=== PATIENT | female | born 1940 | race Caucasian/White ===

== ENCOUNTER 2017-02-08 21:40 | Emergency (ER) | payer MEDICARE, OTHER ==
[2017-02-08 21:51] VITALS: BP 121/73
[2017-02-08] MEDS ORDERED: Meclizine 25 MG Tab PO ONE (21:58)
[2017-02-08] MEDS ORDERED: Promethazine 25 MG/ML SDV IM ONE (21:59)
[2017-02-08] MEDS ORDERED: Ondansetron 4 MG/2 ML SDV IVPUSH ONE (21:59)
[2017-02-08] MEDS ORDERED: Sodium Chloride 0.9% 10 ML Syringe FLUSH PRN (22:00)
[2017-02-08] MEDS ORDERED: Sodium Chloride 0.9% 1,000 ML IV ONE (22:00)
--- NOTE | 2017-02-08 22:24 | EDM.PDOC ---
ED HPI GENERAL MEDICAL PROBLEM - General Chief Complaint: ENT Problem Stated Complaint: Dizziness, nausea, spinning feeling Time Seen by Provider: 02/08/17 21:58 Source of Information: Reports: Patient, RN, RN Notes Reviewed History Limitations: Reports: No Limitations - History of Present Illness INITIAL COMMENTS - FREE TEXT/NARRATIVE: Patient presents to the ED at [facility] complaining of dizziness and vertigo like symptoms. Patient states her symptoms started around 2 pm this afternoon. No known triggers. 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 Patient has a history of vertigo in the remote past. Patient states she took a couple baby ASA and took a nap. After waking up, her symptoms persisted. She feels nauseated and like the room is spinning. Onset: Today Onset Date: 02/08/17 Onset Time: 14:00 - Related Data Allergies Allergy/AdvReac Type Severity Reaction Status Date / Time azithromycin [From Zithromax] Allergy Intermediate Rash Verified 02/08/17 21:56 Penicillins Allergy Intermediate Rash Verified 02/08/17 21:56 cefdinir Allergy Rash Verified 02/08/17 21:56 levofloxacin [From Levaquin] Allergy Hives Verified 02/08/17 21:56 atorvastatin calcium AdvReac Muscle Verified 02/08/17 21:56 [From Lipitor] Aches Home Meds: Home Meds Albuterol [Proair HFA] 2 puff INH QID 07/11/15 [History] Albuterol/Ipratropium [Combivent Respimat] 2 puff INH QID 07/11/15 [History] Albuterol/Ipratropium [DuoNeb 3.0-0.5 MG/3 ML] 3 ml NEB QID 07/11/15 [History] Budesonide/Formoterol Fumarate [Symbicort 80-4.5 Mcg Inhaler] 2 puff INH BID [History] Metoprolol Succinate [Toprol XL] 25 mg PO DAILY 07/11/15 [History] Rosuvastatin Calcium [Crestor] 40 mg PO DAILY 07/11/15 [History] Sertraline [Zoloft] 100 mg PO DAILY 07/11/15 [History] buPROPion HCl [Wellbutrin Xl] 300 mg PO DAILY 07/11/15 [History] Aspirin [Halfprin] 81 mg PO DAILY 10/07/15 [History] Clobetasol Propionate/Emoll [Temovate Emollient 0.05%] 1 applic TOP DAILY PRN [History] Codeine/guaiFENesin [Robitussin AC] 5 ml PO TID PRN 10/07/15 [History] Docusate Calcium 1 tab PO DAILY 10/07/15 [History] Nystatin 1 applic TOP BID PRN 10/07/15 [History] Meclizine [Antivert] 25 mg PO Q6H PRN 10/14/15 [History] Past Medical History HEENT History: Reports: Cataract Cardiovascular History: Reports: High Cholesterol, Hypertension Respiratory History: Reports: Asthma, COPD Gastrointestinal History: Reports: Colon Polyp, Hiatal Hernia, Other (See Below) Other Gastrointestinal History: hx h. pylori Psychiatric History: Reports: Depression Endocrine/Metabolic History: Reports: Obesity/BMI 30+, Osteoporosis - Past Surgical History HEENT Surgical History: Reports: Cataract Surgery Social & Family History - Tobacco Use Smoking Status *Q: Current Every Day Smoker Years of Tobacco use: 57 Packs/Tins Daily: 1 - Alcohol Use Days Per Week of Alcohol Use: 7 Number of Drinks Per Day: 4 Total Drinks Per Week: 28 - Recreational Drug Use Recreational Drug Use: No ED ROS GENERAL - Review of Systems Review Of Systems: See Below Constitutional: Denies: Fever, Chills, Weakness HEENT: Reports: Vertigo Respiratory: Denies: Shortness of Breath, Cough Cardiovascular: Denies: Chest Pain, Lightheadedness, Palpitations GI/Abdominal: Reports: Nausea. Denies: Diarrhea, Vomiting Skin: Reports: No Symptoms Neurological: Reports: Dizziness. Denies: Headache, Numbness, Paresthesia, Tingling ED EXAM, DIZZINESS - Physical Exam Exam: See Below Exam Limited By: No Limitations General Appearance: Alert, No Apparent Distress Eye Exam: Bilateral Eye: EOMI, Normal Inspection, PERRL Nystagmus: No: constant Ears: Normal External Exam, Normal Canal, Normal TMs Head Exam: Atraumatic, Normocephalic Vertigo: reproducible, short duration Neck: Supple Respiratory/Chest: No Respiratory Distress, Lungs Clear, Normal Breath Sounds Cardiovascular: Regular Rate, Rhythm GI/Abdominal: Normal Bowel Sounds, Soft, Non-Tender Neurological: Alert, Oriented x 3 Skin Exam: Warm, Dry, Intact, Normal Color, No Rash Course - Vital Signs Last Recorded V/S: Last Vital Signs Temp 36.6 C 02/08/17 21:50 Pulse 72 02/08/17 21:50 Resp 16 02/08/17 21:50 BP 121/73 02/08/17 21:50 Pulse Ox 94 L 02/08/17 21:50 - Orders/Labs/Meds Orders: Active Orders 24 hr Category Date Time Status Sodium Chloride 0.9% [Normal Saline] 1,000 ml Med 02/08/17 22:00 Active IV ONETIME Sodium Chloride 0.9% [Saline Flush] Med 02/08/17 22:00 Active 10 ml FLUSH ASDIRECTED PRN Peripheral IV Insertion Adult [OM.PC] Routine Oth 02/08/17 22:00 Ordered Medication Orders Sodium Chloride (Normal Saline) 1,000 mls @ 999 mls/hr IV ONETIME ONE Stop: 02/08/17 23:00 Last Admin: 02/08/17 22:18 Dose: 999 mls/hr Sodium Chloride (Saline Flush) 10 ml FLUSH ASDIRECTED PRN PRN Reason: Keep Vein Open Meds: Medications Generic Name Dose Route Start Last Admin Trade Name Freq PRN Reason Stop Dose Admin Sodium Chloride 1,000 mls @ 999 mls/hr 02/08/17 22:00 02/08/17 22:18 Normal Saline IV 02/08/17 23:00 999 mls/hr ONETIME ONE Administration Sodium Chloride 10 ml 02/08/17 22:00 Saline Flush FLUSH ASDIRECTED PRN Keep Vein Open Discontinued Medications Generic Name Dose Route Start Last Admin Trade Name Freq PRN Reason Stop Dose Admin Meclizine HCl 25 mg 02/08/17 21:58 02/08/17 22:25 Antivert PO 02/08/17 21:59 25 mg ONETIME ONE Administration Ondansetron HCl 4 mg 02/08/17 21:59 02/08/17 22:19 Zofran IVPUSH 02/08/17 22:00 4 mg ONETIME ONE Administration Promethazine HCl 25 mg 02/08/17 21:59 02/08/17 22:21 Phenergan IM 02/08/17 22:00 25 mg ONETIME ONE Administration Departure - Departure Time of Disposition: 22:52 Disposition: Home, Self-Care 01 Condition: Good Clinical Impression: Dizziness - Discharge Information Instructions: Vertigo, Dizziness Referrals: Xochitl Fernandez DO [Primary Care Provider] - Forms: ED Department Discharge Additional Instructions: 1. Stay well hydrated and rest 2. If symptoms persist, see your Primary for further examination and testing 3. Take over the counter Meclizine when needed - Problem List Review Problem List Initiated/Reviewed/Updated: Yes - My Orders Last 24 Hours: My Active Orders 02/08/17 22:00 Sodium Chloride 0.9% [Normal Saline] 1,000 ml IV ONETIME Sodium Chloride 0.9% [Saline Flush] 10 ml FLUSH ASDIRECTED PRN Peripheral IV Insertion Adult [OM.PC] Routine - Assessment/Plan Last 24 Hours: My Active Orders 02/08/17 22:00 Sodium Chloride 0.9% [Normal Saline] 1,000 ml IV ONETIME Sodium Chloride 0.9% [Saline Flush] 10 ml FLUSH ASDIRECTED PRN Peripheral IV Insertion Adult [OM.PC] Routine
== END 2017-02-08 23:18 | disposition home or self-care (01) ==
LOC: VM.ED 21:40
DX: R42 Dizziness and giddiness (principal); F17.210 Nicotine dependence, cigarettes, uncomplicated; E78.00 Pure hypercholesterolemia, unspecified; I10 Essential (primary) hypertension; J45.909 Unspecified asthma, uncomplicated; J44.9 Chronic obstructive pulmonary disease, unspecified; E66.9 Obesity, unspecified; F32.9 Major depressive disorder, single episode, unspecified; Z79.82 Long term (current) use of aspirin; Z79.899 Other long term (current) drug therapy; Z88.1 Allergy status to other antibiotic agents; Z88.0 Allergy status to penicillin; Z88.8 Allergy status to other drugs, medicaments and biological substances
CPT/HCPCS: 96361; 96372; 96374; 99283; 99284; A9270; J2405; J2550; J7030

== ENCOUNTER 2017-02-10 22:41 | Emergency (ER) | payer MEDICARE, OTHER ==
[2017-02-10] MEDS ORDERED: Sodium Chloride 0.9% 10 ML Syringe FLUSH PRN (23:01)
[2017-02-10] MEDS ORDERED: Sodium Chloride 0.9% 1,000 ML IV ONE (23:03)
[2017-02-10] MEDS ORDERED: Ondansetron 4 MG/2 ML SDV IVPUSH ONE (23:03)
[2017-02-10] MEDS ORDERED: dimenhyDRINATE 50 MG Tab PO ONE (23:05)
[2017-02-10] MEDS ORDERED: Meclizine 25 MG Tab PO ONE (23:05)
[2017-02-11 00:01] LABS: CHLORIDE,CL 106 mmol/L (98-107); SODIUM,NA 143 mmol/L (136-145)
[2017-02-11] MEDS ORDERED: dimenhyDRINATE 50 MG Tab ONE (00:45)
[2017-02-11 01:02] VITALS: BP 142/82
--- NOTE | 2017-02-16 21:54 | ER ---
Date of Service: 02/10/2017 SUBJECTIVE: Katharine presents to the emergency room with complaints of vertigo. The patient states that she has experienced this intermittently in the past and states that she was in the emergency room on 02/08 with similar symptoms. Her symptoms were treated with meclizine and promethazine, but she continued to experience these symptoms. Again, the patient states that she has experienced this in the past but states that she has not had any neuro imaging to rule out acoustic neuroma or other pathology. She states that she did not experience any chest pain or shortness of breath prior to the onset of the symptoms. PAST MEDICAL HISTORY: 1. Hiatal hernia. 2. Colon polyps. 3. Asthma. 4. COPD. 5. Dyslipidemia. 6. Hypertension. 7. Osteoporosis. 8. Obesity. 9. Depression. MEDICATIONS: 1. Wellbutrin XL. 2. Crestor. 3. Zoloft. 4. Nystatin. 5. Toprol-XL. 6. Antivert. 7. Docusate. 8. Robitussin-AC. 9. Symbicort. 10.Aspirin. 11.DuoNeb. 12.Combivent. 13.ProAir HFA. ALLERGIES: Azithromycin, penicillin, cefdinir, levofloxacin, and atorvastatin. REVIEW OF SYSTEMS: General: Denies any fever or chills. HEENT: Denies any head trauma. No blurred vision. Denies any recent illness. No ear abnormality. Respiratory: No shortness breath. Cardiac: Denies any substernal chest pain. No jaw, arm, neck, or back pain. Denies any palpitations. GI: No melena, hematochezia, or hematemesis. : Denies any dysuria. Musculoskeletal: No myalgias or arthralgias. Neurologic: No fainting, blackouts, lightheadedness. Please see history of present illness. PHYSICAL EXAMINATION: General: This is a 76-year-old female patient, who is in no acute distress. Vital Signs: Blood pressure initially 158/71, heart rate is 97, temperature is 36.3, respiratory rate is 16, O2 saturations 97%. Skin: Warm, pink, and dry. HEENT: Mouth, oral mucosa is moist. Lungs: Clear to auscultation. Heart: Regular rate and rhythm. Abdomen: Soft, nontender. There is no hepatosplenomegaly noted. There is no masses noted. Extremities: Without edema. Neurologic: The patient is alert and oriented, answers all questions appropriately. Her speech is fluent. Her gait is within normal limits. DIAGNOSTIC DATA: A 12-lead EKG was obtained showing a sinus rhythm without any acute ST or T-wave abnormalities. LABORATORY DATA: CBC was obtained, all noted to be within normal limits, as was PT and INR. Chemistry; sodium is 143, potassium is 3.9, chloride is 106, bicarb is 32, BUN is 11, creatinine is 0.8. GFR is greater than 60. Glucose is 119, calcium is 8.0, corrected calcium is 8.72, total bilirubin is 0.7, AST is 15, ALT is 25, alkaline phosphatase is 86, troponin is less than 0.017, total protein is 6.5, albumin is 3.1. CT scan of the patient's brain without contrast was obtained. There was no evidence of any acute pathology. EMERGENCY ROOM COURSE: IV access was established. The patient was given 1000 mL bolus of normal saline and was given meclizine 25 mg p.o. as well as dimenhydrinate 50 mg p.o. She was also given Zofran 4 mg IV. She did report significant improvement in her vertigo. ASSESSMENT: Vertigo. PLAN: The patient will be discharged. I did give her a take-home pack of a dimenhydrinate in case the symptoms redevelop. I did advise that she should follow up with Physical Therapy for vestibular care, but she refused, stating that she wanted to go to her chiropractor instead. All questions were answered. MWK: 02/16/2017 15:44:27 MODL: 02/16/2017 21:48:36 /[id number]
== END 2017-02-11 00:46 | disposition home or self-care (01) ==
LOC: VM.ED 22:41
DX: R42 Dizziness and giddiness (principal); J45.909 Unspecified asthma, uncomplicated; J44.9 Chronic obstructive pulmonary disease, unspecified; I10 Essential (primary) hypertension; E78.5 Hyperlipidemia, unspecified; M81.0 Age-related osteoporosis without current pathological fracture; E66.9 Obesity, unspecified; F32.9 Major depressive disorder, single episode, unspecified; Z88.1 Allergy status to other antibiotic agents; Z88.8 Allergy status to other drugs, medicaments and biological substances
CPT/HCPCS: 36415; 70450; 80053; 84484; 85025; 85610; 93005; 96365; 96375; 99284; A9270; J2405; J7030

== ENCOUNTER 2017-08-27 14:38 | Emergency (ER) | payer MEDICARE, OTHER ==
[2017-08-27 14:58] VITALS: BP 127/69
[2017-08-27] MEDS ORDERED: Scopolamine 1.5 MG Transdermal Patch TOP ONE (15:05)
[2017-08-27] MEDS ORDERED: Meclizine 25 MG Tab PO ONE (15:05)
--- NOTE | 2017-08-27 15:05 | EDM.PDOC ---
ED HPI GENERAL MEDICAL PROBLEM - General Chief Complaint: General Stated Complaint: DIZZY Time Seen by Provider: 08/27/17 14:45 Source of Information: Reports: Patient History Limitations: Reports: No Limitations - History of Present Illness INITIAL COMMENTS - FREE TEXT/NARRATIVE: Patient comes into the ER today coming on after she sustained severe dizziness episode at home while she was getting up from lying position. She's had similar instances in the past the results of emergency room visit. She has a diagnosis of vertigo. She states this incident is exactly the same as one back in May. She had a CT scan labs completed at that time which all came back benign. Patient states she did not fall did not hit her head she's not any more short of breath than she normally is for she does have COPD and constantly has shortness of breath but nothing greater than her baseline. Patient states she becomes more dizzy going from the lying to sitting position or rotating her head from [id number] and [id number]. The dizziness doesn't go away after a few minutes after sitting upright position and focuses on something on the wall. Onset: Today, Sudden Duration: Constant Improves with: Reports: Immobilization Worsens with: Reports: Movement Associated Symptoms: Reports: No Other Symptoms Left Shoulder Pain Score (Numeric/FACES): 6 - Related Data Allergies Allergy/AdvReac Type Severity Reaction Status Date / Time azithromycin [From Zithromax] Allergy Intermediate Rash Verified 08/27/17 14:58 Penicillins Allergy Intermediate Rash Verified 08/27/17 14:58 cefdinir Allergy Rash Verified 08/27/17 14:58 levofloxacin [From Levaquin] Allergy Hives Verified 08/27/17 14:58 atorvastatin calcium AdvReac Muscle Verified 08/27/17 14:58 [From Lipitor] Aches Home Meds: Home Meds Albuterol [Proair HFA] 2 puff INH QID 07/11/15 [History] Albuterol/Ipratropium [Combivent Respimat] 2 puff INH QID 07/11/15 [History] Albuterol/Ipratropium [DuoNeb 3.0-0.5 MG/3 ML] 3 ml NEB QID 07/11/15 [History] Budesonide/Formoterol Fumarate [Symbicort 80-4.5 Mcg Inhaler] 2 puff INH BID [History] Metoprolol Succinate [Toprol XL] 25 mg PO DAILY 07/11/15 [History] Rosuvastatin Calcium [Crestor] 40 mg PO DAILY 07/11/15 [History] Sertraline [Zoloft] 100 mg PO DAILY 07/11/15 [History] buPROPion HCl [Wellbutrin Xl] 300 mg PO DAILY 07/11/15 [History] Aspirin [Halfprin] 81 mg PO DAILY 10/07/15 [History] Clobetasol Propionate/Emoll [Temovate Emollient 0.05%] 1 applic TOP DAILY PRN [History] Codeine/guaiFENesin [Robitussin AC] 5 ml PO TID PRN 10/07/15 [History] Docusate Calcium 1 tab PO DAILY 10/07/15 [History] Nystatin 1 applic TOP BID PRN 10/07/15 [History] Meclizine [Antivert] 25 mg PO Q6H PRN 10/14/15 [History] Dimenhydrinate 50 mg PO Q4HR #3 tablet 02/11/17 [Rx] Past Medical History HEENT History: Reports: Cataract Cardiovascular History: Reports: High Cholesterol, Hypertension Respiratory History: Reports: Asthma, COPD Gastrointestinal History: Reports: Colon Polyp, Hiatal Hernia, Other (See Below) Other Gastrointestinal History: hx h. pylori Psychiatric History: Reports: Depression Endocrine/Metabolic History: Reports: Obesity/BMI 30+, Osteoporosis - Past Surgical History HEENT Surgical History: Reports: Cataract Surgery Social & Family History - Tobacco Use Smoking Status *Q: Current Every Day Smoker Years of Tobacco use: 60 Packs/Tins Daily: 1.5 - Alcohol Use Days Per Week of Alcohol Use: 7 Number of Drinks Per Day: 4 Total Drinks Per Week: 28 - Recreational Drug Use Recreational Drug Use: No ED ROS GENERAL - Review of Systems Review Of Systems: See Below Constitutional: Reports: No Symptoms HEENT: Reports: No Symptoms Respiratory: Reports: No Symptoms Cardiovascular: Reports: No Symptoms Endocrine: Reports: No Symptoms GI/Abdominal: Reports: No Symptoms : Reports: No Symptoms Musculoskeletal: Reports: No Symptoms Skin: Reports: No Symptoms Neurological: Reports: Dizziness (with movement) Psychiatric: Reports: No Symptoms Hematologic/Lymphatic: Reports: No Symptoms Immunologic: Reports: No Symptoms ED EXAM, GENERAL - Physical Exam Exam: See Below Exam Limited By: No Limitations General Appearance: Alert, WD/WN, No Apparent Distress Ears: Normal External Exam, Normal Canal Head: Atraumatic, Normocephalic Neck: Normal Inspection, Supple, Non-Tender, Full Range of Motion Respiratory/Chest: No Respiratory Distress, Lungs Clear, Normal Breath Sounds Cardiovascular: Normal Peripheral Pulses, Regular Rate, Rhythm GI/Abdominal: Normal Bowel Sounds, Soft, Non-Tender, No Organomegaly, No Distention, No Abnormal Bruit, No Mass, Pelvis Stable Neurological: Other (dizziness when rising from the laying position and rotating head. ) Psychiatric: Normal Affect, Normal Mood Skin Exam: Warm, Dry, Intact, Normal Color, No Rash Course - Vital Signs Last Recorded V/S: Last Vital Signs Temp 36.6 C 08/27/17 14:53 Pulse 63 08/27/17 14:53 Resp 18 08/27/17 14:53 BP 127/69 08/27/17 14:53 Pulse Ox 95 08/27/17 14:53 - Orders/Labs/Meds Meds: Medications Discontinued Medications Generic Name Dose Route Start Last Admin Trade Name Raciel PRN Reason Stop Dose Admin Meclizine HCl 25 mg 08/27/17 15:05 08/27/17 15:12 Antivert PO 08/27/17 15:06 25 mg ONETIME ONE Administration Scopolamine 1.5 mg 08/27/17 15:05 Transderm-Scop TOP 08/27/17 15:06 ONETIME ONE - Re-Assessments/Exams Free Text/Narrative Re-Assessment/Exam: 08/27/17 15:21 Did offer to do labs and a CT scan at this point patient is deferring all them she would like to try oral medication regimen to see if the dizziness/vertigo will go away. We'll go ahead and give the patient 30 minutes if this is not reside of any sort we will go ahead and continue all her lab draw. Patient was discouraged from waiting in case her is anywhere abnormal findings however the patient would like to hold off. She is aware of the risks of this. Departure - Departure Time of Disposition: 16:00 Disposition: Home, Self-Care 01 Condition: Good Clinical Impression: Vertigo, Dizziness - Discharge Information Instructions: Vertigo, [id number] Forms: ED Department Discharge Additional Instructions: increase water intake follow up with PCP if symptoms continue and progress follow up with physical therapy to help with vertigo training Return if symptoms continue or progress
== END 2017-08-27 16:12 | disposition home or self-care (01) ==
LOC: VM.ED 14:38
DX: R42 Dizziness and giddiness (principal); E78.00 Pure hypercholesterolemia, unspecified; I10 Essential (primary) hypertension; E66.9 Obesity, unspecified; J45.909 Unspecified asthma, uncomplicated; F17.210 Nicotine dependence, cigarettes, uncomplicated; Z88.2 Allergy status to sulfonamides; Z88.8 Allergy status to other drugs, medicaments and biological substances; Z79.899 Other long term (current) drug therapy; Z79.82 Long term (current) use of aspirin
CPT/HCPCS: 99283; A9270

== ENCOUNTER 2018-01-03 04:37 | Emergency (ER) | payer MEDICARE, OTHER ==
[2018-01-03 04:58] VITALS: BP 130/79
[2018-01-03] MEDS: GI Cocktail Oral Solution 30 ML PO ONE (05:18)
[2018-01-03] MEDS: Cyclobenzaprine 10 MG Tab PO ONE (05:22)
[2018-01-03 06:08] LABS: CHLORIDE,CL 105 mmol/L (98-107); SODIUM,NA 141 mmol/L (136-145)
--- NOTE | 2018-01-03 06:24 | EDM.PDOC ---
ED HPI GENERAL MEDICAL PROBLEM - General Chief Complaint: Chest Pain Stated Complaint: Left lower chest/rib pain Time Seen by Provider: 01/03/18 05:03 Source of Information: Reports: Patient History Limitations: Reports: No Limitations - History of Present Illness INITIAL COMMENTS - FREE TEXT/NARRATIVE: Patient comes in with complaints of left rib/chest pain. She denies shortness of breath. No pain or numbness/tingling to the left arm, neck, or jaw. Pain does worsen with movement and palpation. Denies fever, no blood to urine or stool. Having regular bowel and bladder movements. Denies any history of HI or CVA. She states she was out to eat at the local [employer] and had a couple of beers with her dinner. She had some burping and took some gaviston. This did help. Treatments MANAGER OF PROJECT MANAGEMENT: Reports: Other (see below) Other Treatments MANAGER OF PROJECT MANAGEMENT: Mylanta left lower chest/rib Pain Score (Numeric/FACES): 2 - Related Data Allergies Allergy/AdvReac Type Severity Reaction Status Date / Time azithromycin [From Zithromax] Allergy Intermediate Rash Verified 01/03/18 05:00 Penicillins Allergy Intermediate Rash Verified 01/03/18 05:00 cefdinir Allergy Rash Verified 01/03/18 05:00 levofloxacin [From Levaquin] Allergy Hives Verified 01/03/18 05:00 atorvastatin calcium AdvReac Muscle Verified 01/03/18 05:00 [From Lipitor] Aches Home Meds: Home Meds Albuterol [Proair HFA] 2 puff INH QID 07/11/15 [History] Albuterol/Ipratropium [Combivent Respimat] 2 puff INH QID 07/11/15 [History] Albuterol/Ipratropium [DuoNeb 3.0-0.5 MG/3 ML] 3 ml NEB QID 07/11/15 [History] Budesonide/Formoterol Fumarate [Symbicort 80-4.5 Mcg Inhaler] 2 puff INH BID [History] Metoprolol Succinate [Toprol XL] 25 mg PO DAILY 07/11/15 [History] Rosuvastatin Calcium [Crestor] 40 mg PO DAILY 07/11/15 [History] Sertraline [Zoloft] 100 mg PO DAILY 07/11/15 [History] buPROPion HCl [Wellbutrin Xl] 300 mg PO DAILY 07/11/15 [History] Aspirin [Halfprin] 81 mg PO DAILY 10/07/15 [History] Clobetasol Propionate/Emoll [Temovate Emollient 0.05%] 1 applic TOP DAILY PRN [History] Codeine/guaiFENesin [Robitussin AC] 5 ml PO TID PRN 10/07/15 [History] Docusate Calcium 1 tab PO DAILY 10/07/15 [History] Nystatin 1 applic TOP BID PRN 10/07/15 [History] Meclizine [Antivert] 25 mg PO Q6H PRN 10/14/15 [History] Dimenhydrinate 50 mg PO Q4HR #3 tablet 02/11/17 [Rx] Past Medical History HEENT History: Reports: Cataract Cardiovascular History: Reports: High Cholesterol, Hypertension Respiratory History: Reports: Asthma, COPD Gastrointestinal History: Reports: Colon Polyp, Hiatal Hernia, Other (See Below) Other Gastrointestinal History: hx h. pylori Psychiatric History: Reports: Depression Endocrine/Metabolic History: Reports: Obesity/BMI 30+, Osteoporosis - Past Surgical History HEENT Surgical History: Reports: Cataract Surgery Course - Vital Signs Last Recorded V/S: Last Vital Signs Temp 36.9 C 01/03/18 04:37 Pulse 71 01/03/18 04:37 Resp 16 01/03/18 04:37 BP 130/79 01/03/18 04:37 Pulse Ox 95 01/03/18 04:37 - Orders/Labs/Meds Orders: Active Orders 24 hr Category Date Time Status EKG 12 Lead [EKG Documentation Completion] [RC] ROUTINE Care 01/03/18 05:03 Active Chest 1V Frontal [CR] Stat Exams 01/03/18 05:11 Taken Labs: Laboratory Tests 01/03/18 01/03/18 01/03/18 Range/Units 05:39 05:39 05:39 WBC 7.8 (4.0-10.0) x10^3/uL RBC 4.86 (4.00-5.50) x10^6/uL Hgb 14.9 (12.0-16.0) g/dL Hct 44.6 (33.0-47.0) % MCV 91.8 (78.0-93.0) fL MCH 30.7 (26.0-32.0) pg MCHC 33.4 (32.0-36.0) g/dL RDW Coeff of Carissa 14.7 (10.0-15.0) % Plt Count 236 (130-400) x10^3/uL Neut % (Auto) 63.4 (50.0-80.0) % Lymph % (Auto) 25.0 (25.0-50.0) % Greenlee % (Auto) 8.6 (2.0-11.0) % Eos % (Auto) 2.6 (0.0-4.0) % Baso % (Auto) 0.4 (0.2-1.2) % PT 9.1 L (9.6-11.4) SEC INR 0.9 L (2.0-3.5) Sodium 141 (136-145) mmol/L Potassium 4.4 (3.5-5.1) mmol/L Chloride 105 (98-107) mmol/L Carbon Dioxide 28 (21-32) mmol/L Anion Gap 12.4 (10-20) mmol/L BUN 17 (7-18) mg/dL Creatinine 0.8 (0.55-1.02) mg/dL Est Cr Clr Drug Dosing 54.67 mL/min Estimated GFR (MDRD) > 60 Glucose 108 H (74-106) mg/dL Calcium 8.6 (8.5-10.1) mg/dL Corrected Calcium 9.16 (8.5-10.1) mg/dL Total Bilirubin 0.6 (0.2-1.0) mg/dL AST 17 (15-37) U/L ALT 24 (14-59) U/L Alkaline Phosphatase 86 (46-116) U/L Troponin I < 0.017 (<=0.056) ng/mL Total Protein 6.9 (6.4-8.2) g/dL Albumin 3.3 L (3.4-5.0) g/dL Globulin 3.6 Albumin/Globulin Ratio 0.92 Meds: Medications Discontinued Medications Generic Name Dose Route Start Last Admin Trade Name Freq PRN Reason Stop Dose Admin Al Hydroxide/Mg Hydroxide 30 ml 01/03/18 05:03 05/16/18 05:18 Gi Cocktail PO 01/03/18 05:04 30 ml ONETIME ONE Administration Cyclobenzaprine HCl 10 mg 01/03/18 05:03 01/03/18 05:22 Flexeril PO 01/03/18 05:04 10 mg ONETIME ONE Administration Cyclobenzaprine HCl 1 packet 01/03/18 06:19 01/03/18 06:31 Take Home: Cyclobenzaprine 10 Mg, 4 Tab Pack PO 01/03/18 06:20 1 packet ONETIME ONE Administration Departure - Departure Time of Disposition: 06:25 Disposition: Home, Self-Care 01 Condition: Good Clinical Impression: Costochondral chest pain Instructions: Costochondritis, [id number], Chest Wall Pain, [id number] Referrals: PCP,Unobtain [Primary Care Provider] - Forms: ED Department Discharge Additional Instructions: You labs, ekg, and x-ray are all normal with no signs of a heart attack Your pain is likely due to acid reflux as well as some costochondritis Please take the flexeril as needed for muscle pain Follow up in the clinic as needed for any additional symptom management Please call us with any questions or concerns - Problem List & Annotations (1) Costochondral chest pain SNOMED Code(s): 766055044, [id number] Code(s): R07.1 - CHEST PAIN ON BREATHING Status: Acute Priority: Medium - Problem List Review Problem List Initiated/Reviewed/Updated: Yes - My Orders Last 24 Hours: My Active Orders 01/03/18 05:03 EKG 12 Lead [EKG Documentation Completion] [RC] ROUTINE 01/03/18 05:11 Chest 1V Frontal [CR] Stat - Assessment/Plan Last 24 Hours: My Active Orders 01/03/18 05:03 EKG 12 Lead [EKG Documentation Completion] [RC] ROUTINE 01/03/18 05:11 Chest 1V Frontal [CR] Stat Assessment:: costochondral chest pain Plan: You labs, ekg, and x-ray are all normal with no signs of a heart attack Your pain is likely due to acid reflux as well as some costochondritis Please take the flexeril as needed for muscle pain Follow up in the clinic as needed for any additional symptom management Please call us with any questions or concerns
[2018-01-03] MEDS: Take Home: Cyclobenzaprine 10 MG Tab, 4 Tab Pack PO ONE (06:31)
== END 2018-01-03 06:39 | disposition home or self-care (01) ==
LOC: VM.ED 04:37
DX: M94.0 Chondrocostal junction syndrome [Tietze] (principal); I10 Essential (primary) hypertension; E78.00 Pure hypercholesterolemia, unspecified; J44.9 Chronic obstructive pulmonary disease, unspecified; F32.9 Major depressive disorder, single episode, unspecified; E66.9 Obesity, unspecified; Z79.899 Other long term (current) drug therapy; Z88.0 Allergy status to penicillin; Z88.1 Allergy status to other antibiotic agents; Z88.8 Allergy status to other drugs, medicaments and biological substances
CPT/HCPCS: 36415; 71045; 80053; 84484; 85025; 85610; 93005; 99284; A9270-GY

== ENCOUNTER 2019-10-08 03:00 | Emergency (ER) | payer MEDICARE, OTHER ==
[2019-10-08] MEDS: Aspirin 81 MG Tab.Chew PO ONE (03:30)
--- NOTE | 2019-10-08 03:33 | EDM.PDOC ---
ED HPI GENERAL MEDICAL PROBLEM - General Chief Complaint: Chest Pain Stated Complaint: Chest pain Time Seen by Provider: 10/08/19 03:00 Source of Information: Reports: Patient History Limitations: Reports: No Limitations - History of Present Illness INITIAL COMMENTS - FREE TEXT/NARRATIVE: Patient states approximately 10:00 or so tonight when laying down and rolled over on her left side started having a sharp chest pain under her left breast about a 6 out of 10 nonradiating no shortness of breath no nausea or vomiting. States she has had these types of chest pains before either due to indigestion or hiatal hernia. States she had been eaten spicy trail mix all night thought it might be gas got up and took a few Gaviscon waited a little bit try to lay back down but the pain was still there. She denied any pain intensity states it is worse when she lays on that side or puts pressure up under her left breast. She states she was seen here in the ER with the same type of pain about a year ago. 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 was had had several troponins drawn in the past all are negative mother had a heart attack at 84 father had no heart problems She currently has no chest pain unless she pushes directly on the area under her left breast Onset: Sudden Duration: Hour(s): Location: Reports: Chest Quality: Reports: Stabbing Severity: Moderate (Was about a 5 or 6 out of 10 none now) Worsens with: Reports: Other (Pressure and touch) Associated Symptoms: Reports: No Other Symptoms Treatments JAVASCRIPT ENGINEER: Denies: Acetaminophen, Aspirin Other Treatments JAVASCRIPT ENGINEER: tums left chest, under breast Pain Score (Numeric/FACES): 6 - Related Data Allergies Allergy/AdvReac Type Severity Reaction Status Date / Time azithromycin [From Zithromax] Allergy Intermediate Rash Verified 10/08/19 03:17 Penicillins Allergy Intermediate Rash Verified 10/08/19 03:17 cefdinir Allergy Rash Verified 10/08/19 03:17 levofloxacin [From Levaquin] Allergy Hives Verified 10/08/19 03:17 atorvastatin calcium AdvReac Muscle Verified 10/08/19 03:17 [From Lipitor] Aches Home Meds: Home Meds Albuterol [Proair HFA] 2 puff INH QID 07/11/15 [History] Albuterol/Ipratropium [Combivent Respimat] 2 puff INH QID 07/11/15 [History] Albuterol/Ipratropium [DuoNeb 3.0-0.5 MG/3 ML] 3 ml NEB QID 07/11/15 [History] Budesonide/Formoterol Fumarate [Symbicort 80-4.5 MCG] 2 puff INH BID 07/11/15 [ History] Metoprolol Succinate [Toprol XL] 25 mg PO DAILY 07/11/15 [History] Rosuvastatin Calcium [Crestor] 40 mg PO DAILY 07/11/15 [History] Sertraline [Zoloft] 100 mg PO DAILY 07/11/15 [History] buPROPion HCl [Wellbutrin Xl] 300 mg PO DAILY 07/11/15 [History] Aspirin [Halfprin] 81 mg PO DAILY 10/07/15 [History] Clobetasol Propionate/Emoll [Temovate Emollient 0.05%] 1 applic TOP DAILY PRN [History] Docusate Calcium 1 tab PO DAILY 10/07/15 [History] Nystatin 1 applic TOP BID PRN 10/07/15 [History] Scopolamine 1 mg TRDERM ASDIRECTED 10/08/19 [History] Past Medical History HEENT History: Reports: Cataract Cardiovascular History: Reports: High Cholesterol, Hypertension Respiratory History: Reports: Asthma, COPD Gastrointestinal History: Reports: Colon Polyp, Hiatal Hernia, Other (See Below) Other Gastrointestinal History: hx h. pylori Psychiatric History: Reports: Depression Endocrine/Metabolic History: Reports: Obesity/BMI 30+, Osteoporosis - Past Surgical History HEENT Surgical History: Reports: Cataract Surgery ED ROS GENERAL - Review of Systems Review Of Systems: See Below Constitutional: Reports: No Symptoms. Denies: Fever, Chills, Malaise, Weakness HEENT: Reports: No Symptoms Respiratory: Reports: No Symptoms, Pleuritic Chest Pain. Denies: Shortness of Breath, Wheezing, Cough, Sputum Cardiovascular: Reports: Chest Pain. Denies: Blood Pressure Problem, Claudication, Dyspnea on Exertion, Edema, Lightheadedness, Orthopnea, Palpitations, PND, Syncope Endocrine: Reports: No Symptoms GI/Abdominal: Reports: No Symptoms : Reports: No Symptoms Musculoskeletal: Reports: No Symptoms Skin: Reports: No Symptoms Neurological: Reports: No Symptoms Psychiatric: Reports: No Symptoms Hematologic/Lymphatic: Reports: No Symptoms Immunologic: Reports: No Symptoms ED EXAM, GENERAL - Physical Exam Exam: See Below Exam Limited By: No Limitations General Appearance: Alert, WD/WN, No Apparent Distress Eye Exam: Bilateral Eye: PERRL Throat/Mouth: Normal Inspection, Normal Lips, Normal Teeth, Normal Gums, Normal Oropharynx, Normal Voice, No Airway Compromise Head: Atraumatic, Normocephalic Neck: Normal Inspection, Supple, Non-Tender, Full Range of Motion Respiratory/Chest: No Respiratory Distress, Lungs Clear, Normal Breath Sounds, No Accessory Muscle Use, Other (Patient has pinpoint tenderness to the left anterior chest wall just under the breast where she has superficial candidiasis she states she always has she states the palpation reproduces the same type of pain). No: Chest Non-Tender Cardiovascular: Normal Peripheral Pulses, Regular Rate, Rhythm, No Edema, No Gallop, No JVD, No Murmur, No Rub GI/Abdominal: Normal Bowel Sounds, Soft, Non-Tender, No Organomegaly, No Distention Back Exam: Normal Inspection, Full Range of Motion Extremities: Normal Inspection, Normal Range of Motion, Non-Tender, No Pedal Edema, Normal Capillary Refill Neurological: Alert, Oriented, CN II-XII Intact, Normal Cognition Psychiatric: Normal Affect, Normal Mood Skin Exam: Warm, Dry, Intact, Normal Color, Other (Bilateral superficial candidiasis under the breast). No: No Rash Course - Vital Signs Text/Narrative:: CBC BMP troponin EKG shows normal sinus rhythm no acute findings compared with the 19 Dec 2017 no changes I reviewed the note and almost read identical to the prior presentation today All lab work within normal limits troponin negative Patient was rechecked states she has no chest pain he wants to go home states she will follow-up with her primary care provider Mecca Pillai in the next day or 2 Last Recorded V/S: Last Vital Signs Temp 36.1 C 10/08/19 03:00 Pulse 68 10/08/19 03:00 Resp 18 10/08/19 03:00 BP 148/78 H 10/08/19 03:00 Pulse Ox 95 10/08/19 03:00 - Orders/Labs/Meds Orders: Active Orders 24 hr Category Date Time Status EKG 12 Lead [EKG Documentation Completion] [RC] STAT Care 10/08/19 03:25 Ordered Labs: Laboratory Tests 10/08/19 10/08/19 10/08/19 Range/Units 03:46 03:46 03:49 WBC 8.0 (4.0-10.0) x10^3/uL RBC 5.03 (4.00-5.50) x10^6/uL Hgb 15.3 (12.0-16.0) g/dL Hct 45.0 (33.0-47.0) % MCV 89.5 (78.0-93.0) fL MCH 30.4 (26.0-32.0) pg MCHC 34.0 (32.0-36.0) g/dL RDW Coeff of Carissa 14.8 (10.0-15.0) % Plt Count 233 (130-400) x10^3/uL Neut % (Auto) 71.5 (50.0-80.0) % Lymph % (Auto) 19.9 L (25.0-50.0) % [place] % (Auto) 6.8 (2.0-11.0) % Eos % (Auto) 1.5 (0.0-4.0) % Baso % (Auto) 0.3 (0.2-1.2) % Sodium 139 (136-145) mmol/L Potassium 3.5 (3.5-5.1) mmol/L Chloride 105 (98-107) mmol/L Carbon Dioxide 25 (21-32) mmol/L Anion Gap 12.5 (10-20) mmol/L BUN 14 (7-18) mg/dL Creatinine 0.8 (0.55-1.02) mg/dL Est Cr Clr Drug Dosing 51.66 mL/min Estimated GFR (MDRD) > 60 Glucose 106 (74-106) mg/dL Calcium 8.1 L (8.5-10.1) mg/dL POC Troponin I 0.01 (0.00-0.08) ng/mL Meds: Medications Discontinued Medications Generic Name Dose Route Start Last Admin Trade Name Freq PRN Reason Stop Dose Admin Aspirin 324 mg 10/08/19 03:25 10/08/19 03:30 Aspirin PO 10/08/19 03:26 324 mg ONETIME ONE Administration Departure - Departure Time of Disposition: 04:10 Disposition: Home, Self-Care 01 Condition: Good Clinical Impression: Non-cardiac chest pain Forms: ED Department Discharge Sepsis Event Note - Evaluation Sepsis Screening Result: No Definite Risk - Focused Exam Vital Signs: Vital Signs Temp Pulse Resp BP Pulse Ox 10/08/19 03:00 36.1 C 68 18 148/78 H 95 Date Exam was Performed: 10/08/19 Time Exam was Performed: 04:08 - Problem List & Annotations (1) Non-cardiac chest pain SNOMED Code(s): 847022104 Code(s): R07.89 - OTHER CHEST PAIN Status: Acute - My Orders Last 24 Hours: My Active Orders 10/08/19 03:25 EKG 12 Lead [EKG Documentation Completion] [RC] STAT - Assessment/Plan Last 24 Hours: My Active Orders 10/08/19 03:25 EKG 12 Lead [EKG Documentation Completion] [RC] STAT
[2019-10-08 04:06] LABS: CHLORIDE,CL 105 mmol/L (98-107); SODIUM,NA 139 mmol/L (136-145)
[2019-10-08 04:07] LABS: ANION GAP 12.5 mmol/L (10-20)
[2019-10-08 04:44] VITALS: BP 130/77; PULSE 61
== END 2019-10-08 04:30 | disposition home or self-care (01) ==
LOC: VM.ED 03:00
DX: R07.89 Other chest pain (principal); I10 Essential (primary) hypertension; J44.9 Chronic obstructive pulmonary disease, unspecified; E78.00 Pure hypercholesterolemia, unspecified; F41.9 Anxiety disorder, unspecified; E66.9 Obesity, unspecified; Z68.34 Body mass index [BMI] 34.0-34.9, adult; Z88.1 Allergy status to other antibiotic agents; Z88.8 Allergy status to other drugs, medicaments and biological substances; Z88.0 Allergy status to penicillin; Z79.899 Other long term (current) drug therapy; Z79.51 Long term (current) use of inhaled steroids; Z79.82 Long term (current) use of aspirin
CPT/HCPCS: 36415; 80048; 84484; 85025; 93005; 93010; 99283-GF; 99285-25; A9270-GY

== ENCOUNTER 2021-06-26 20:13 | Emergency (ER) | payer MEDICARE, OTHER ==
[2021-06-27 00:19] VITALS: BP 134/73
[2021-06-27 00:34] VITALS: PULSE 84
--- NOTE | 2021-06-29 05:52 | EDM.PDOC ---
ED HPI GENERAL MEDICAL PROBLEM - General Chief Complaint: General Stated Complaint: NOT FEELING WELL Time Seen by Provider: 06/26/21 20:15 Source of Information: Reports: Patient History Limitations: Reports: No Limitations - History of Present Illness INITIAL COMMENTS - FREE TEXT/NARRATIVE: Pt. presents to ER requesting a test for coronavirus. Pt. states that she has spent time in a car with a pt. who was found to have coronavirus. Pt. states had a 2 part vaccination and a booster. She states that she has felt run down, fatigued and has had a fever or the past several days. Denies any shortness of breath or chest pain. She is a smoker and has a history of COPD. 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 No nausea or vomiting. She complains of non-productive cough. Onset Date: 06/26/21 Location: Reports: Chest, Generalized - Related Data Allergies Allergy/AdvReac Type Severity Reaction Status Date / Time azithromycin [From Zithromax] Allergy Intermediate Rash Verified 10/08/19 03:17 Penicillins Allergy Intermediate Rash Verified 10/08/19 03:17 cefdinir Allergy Rash Verified 10/08/19 03:17 levofloxacin [From Levaquin] Allergy Hives Verified 10/08/19 03:17 atorvastatin calcium AdvReac Muscle Verified 10/08/19 03:17 [From Lipitor] Aches Home Meds: Home Meds Albuterol [Proair HFA] 2 puff INH QID 07/11/15 [History] Albuterol/Ipratropium [Combivent Respimat] 2 puff INH QID 07/11/15 [History] Albuterol/Ipratropium [DuoNeb 3.0-0.5 MG/3 ML] 3 ml NEB QID 07/11/15 [History] Budesonide/Formoterol Fumarate [Symbicort 80-4.5 MCG] 2 puff INH BID 07/11/15 [History] Metoprolol Succinate [Toprol XL] 25 mg PO DAILY 07/11/15 [History] Rosuvastatin Calcium [Crestor] 40 mg PO DAILY 07/11/15 [History] Sertraline [Zoloft] 100 mg PO DAILY 07/11/15 [History] Aspirin [Halfprin] 81 mg PO DAILY 10/07/15 [History] Docusate Calcium 1 tab PO DAILY 10/07/15 [History] Past Medical History HEENT History: Reports: Cataract Cardiovascular History: Reports: High Cholesterol, Hypertension Respiratory History: Reports: Asthma, COPD Gastrointestinal History: Reports: Colon Polyp, Hiatal Hernia, Other (See Below) Other Gastrointestinal History: hx h. pylori Psychiatric History: Reports: Depression Endocrine/Metabolic History: Reports: Obesity/BMI 30+, Osteoporosis - Infectious Disease History Infectious Disease History: Reports: Novel Coronavirus - Past Surgical History HEENT Surgical History: Reports: Cataract Surgery GI Surgical History: Reports: Colonoscopy Social & Family History - Family History Family Medical History: Unobtainable - Tobacco Use Tobacco Use Status *Q: Current Every Day Tobacco User Years of Tobacco use: 60 Packs/Tins Daily: 1 - Caffeine Use Caffeine Use: Reports: None - Recreational Drug Use Recreational Drug Use: No ED ROS GENERAL - Review of Systems Review Of Systems: Comprehensive ROS is negative, except as noted in HPI. ED EXAM, GENERAL - Physical Exam Exam: See Below Exam Limited By: No Limitations General Appearance: Alert, WD/WN, No Apparent Distress Throat/Mouth: Normal Inspection, Normal Lips, Normal Teeth, Normal Gums, Normal Oropharynx, Normal Voice, No Airway Compromise Head: Atraumatic, Normocephalic Neck: Normal Inspection, Supple, Non-Tender, Full Range of Motion Respiratory/Chest: No Respiratory Distress, No Accessory Muscle Use, Decreased Breath Sounds Cardiovascular: Normal Peripheral Pulses, Regular Rate, Rhythm, No Edema, No JVD Peripheral Pulses: 4+: Radial (L) GI/Abdominal: Soft, Non-Tender, No Distention, No Mass (Female) Exam: Deferred Rectal (Female) Exam: Deferred Back Exam: Normal Inspection, Full Range of Motion, NT Extremities: Normal Inspection, Normal Range of Motion, Non-Tender, Normal Capillary Refill, No Pedal Edema Neurological: Alert, Oriented, CN II-XII Intact, Normal Cognition, Normal Gait, Normal Reflexes, No Motor/Sensory Deficits Psychiatric: Normal Affect, Normal Mood Course - Vital Signs Last Recorded V/S: Last Vital Signs Temp 37.2 C 06/26/21 20:15 Pulse 84 06/26/21 21:00 Resp 18 06/26/21 21:00 BP 134/73 06/26/21 21:00 Pulse Ox 94 L 06/26/21 21:00 - Orders/Labs/Meds Labs: Laboratory Tests 06/26/21 Range/Units 20:35 SARS CoV-2 RNA Rapid PAULA Positive H (NEGATIVE) Departure - Departure Time of Disposition: 21:30 Disposition: Home, Self-Care 01 Clinical Impression: COVID-19 - Discharge Information Referrals: Mecca Pillai NP [Primary Care Provider] - Forms: ED Department Discharge Additional Instructions: Home to rest. Contact your PCP if you are interested in doing the BAM infusion. Return to ER if you are having troubles breathing. Sepsis Event Note (ED) - Evaluation Sepsis Screening Result: No Definite Risk - Problem List Review Problem List Initiated/Reviewed/Updated: Yes - Assessment/Plan Plan: Pt. was positive. Her vitals were all within normal limits and she was not in extremis. She states that she will return to ER if she develops increased work of breathing, lightheadedness, chest pain, or palpitations.
== END 2021-06-26 21:00 | disposition home or self-care (01) ==
LOC: VM.ED 20:13
DX: U07.1 COVID-19 (principal); E78.00 Pure hypercholesterolemia, unspecified; I10 Essential (primary) hypertension; J44.9 Chronic obstructive pulmonary disease, unspecified; E66.9 Obesity, unspecified; Z68.29 Body mass index [BMI] 29.0-29.9, adult; Z72.0 Tobacco use; Z79.82 Long term (current) use of aspirin; Z79.899 Other long term (current) drug therapy; Z88.0 Allergy status to penicillin; Z88.1 Allergy status to other antibiotic agents; Z88.8 Allergy status to other drugs, medicaments and biological substances
CPT/HCPCS: 99283; U0002

== ENCOUNTER 2021-12-17 19:48 | Emergency (ER) | payer MEDICARE, OTHER ==
[2021-12-17 20:18] VITALS: BP 119/54; PULSE 69
== END 2021-12-17 20:27 | disposition home or self-care (01) ==
LOC: VM.ED 19:48
DX: S30.1XXA Contusion of abdominal wall, initial encounter (principal); E78.00 Pure hypercholesterolemia, unspecified; I10 Essential (primary) hypertension; J44.9 Chronic obstructive pulmonary disease, unspecified; E66.9 Obesity, unspecified; Z88.0 Allergy status to penicillin; Z88.1 Allergy status to other antibiotic agents; Z88.8 Allergy status to other drugs, medicaments and biological substances; Z79.82 Long term (current) use of aspirin; Z79.899 Other long term (current) drug therapy; Z90.710 Acquired absence of both cervix and uterus; Z90.722 Acquired absence of ovaries, bilateral; Z68.28 Body mass index [BMI] 28.0-28.9, adult
CPT/HCPCS: 51798; 99283-25; 99284

== ENCOUNTER 2022-02-06 16:45 | Emergency (ER) | payer MEDICARE, OTHER ==
[2022-02-06 17:47] LABS: ANION GAP 11.2 mmol/L (5-15)
[2022-02-06] MEDS ORDERED: Lactated Ringers 1,000 ML IV SCH (18:00)
[2022-02-06 18:39] VITALS: BP 107/71; PULSE 74
== END 2022-02-06 19:10 | disposition home or self-care (01) ==
LOC: VM.ED 16:45
DX: K59.00 Constipation, unspecified (principal); E86.0 Dehydration; E78.00 Pure hypercholesterolemia, unspecified; I10 Essential (primary) hypertension; J44.9 Chronic obstructive pulmonary disease, unspecified; E66.9 Obesity, unspecified; Z68.31 Body mass index [BMI] 31.0-31.9, adult; Z88.0 Allergy status to penicillin; Z88.1 Allergy status to other antibiotic agents; Z88.8 Allergy status to other drugs, medicaments and biological substances; Z79.82 Long term (current) use of aspirin; Z79.899 Other long term (current) drug therapy; Z86.16 Personal history of COVID-19; Z87.891 Personal history of nicotine dependence
CPT/HCPCS: 80048; 85025; 96360; 99283-25; 99284; J7120

== ENCOUNTER 2022-03-06 22:18 | Emergency (ER) | payer MEDICARE, OTHER ==
[2022-03-06] MEDS ORDERED: Sodium Chloride 0.9% 10 ML Syringe FLUSH PRN (23:00)
[2022-03-06 23:22] LABS: CHLORIDE,CL 100 mmol/L (98-107); SODIUM,NA 138 mmol/L (136-145)
[2022-03-06 23:23] LABS: ANION GAP 11.1 mmol/L (5-15); ESTIMATED GFR 57 mL/min (>=60)
[2022-03-06] MEDS: Lactated Ringers 1,000 ML IV ONE (23:45)
[2022-03-07 04:09] VITALS: BP 117/69; PULSE 77
== END 2022-03-07 01:06 | disposition home or self-care (01) ==
LOC: VM.ED 22:18
DX: E86.0 Dehydration (principal); E87.6 Hypokalemia; E83.42 Hypomagnesemia; E78.00 Pure hypercholesterolemia, unspecified; I10 Essential (primary) hypertension; J44.9 Chronic obstructive pulmonary disease, unspecified; E66.9 Obesity, unspecified; Z68.26 Body mass index [BMI] 26.0-26.9, adult; Z88.0 Allergy status to penicillin; Z88.1 Allergy status to other antibiotic agents; Z88.8 Allergy status to other drugs, medicaments and biological substances; Z79.82 Long term (current) use of aspirin; Z79.899 Other long term (current) drug therapy; Z86.16 Personal history of COVID-19
CPT/HCPCS: 36415; 80053; 83735; 85025; 96360; 99284-25; J7120

== ENCOUNTER 2022-04-06 18:59 | Emergency (ER) | payer MEDICARE, OTHER ==
[2022-04-06 19:25] VITALS: BP 123/52; PULSE 86
[2022-04-06 19:43] LABS: ANION GAP 12.9 mmol/L (5-15)
[2022-04-06] MEDS ORDERED: Lidocaine 4% 1 each Patch TOP PRN (19:47)
== END 2022-04-06 20:15 | disposition home or self-care (01) ==
LOC: VM.ED 18:59
DX: M62.830 Muscle spasm of back (principal); T50.905A Adverse effect of unspecified drugs, medicaments and biological substances, initial encounter; E78.00 Pure hypercholesterolemia, unspecified; I10 Essential (primary) hypertension; J44.9 Chronic obstructive pulmonary disease, unspecified; E66.9 Obesity, unspecified; Z68.26 Body mass index [BMI] 26.0-26.9, adult; Z88.0 Allergy status to penicillin; Z88.1 Allergy status to other antibiotic agents; Z88.8 Allergy status to other drugs, medicaments and biological substances; Z79.82 Long term (current) use of aspirin; Z86.16 Personal history of COVID-19
CPT/HCPCS: 36415; 80053; 81003; 85025; 99283; 99284

== ENCOUNTER 2022-04-09 08:30 | Emergency (ER) | payer MEDICARE, OTHER ==
[2022-04-09 08:52] VITALS: BP 102/49; PULSE 138
[2022-04-09] MEDS ORDERED: Diltiazem 50 MG/10 ML SDV IVPUSH ONE ×2 (09:10→10:21)
[2022-04-09] MEDS ORDERED: Sodium Chloride 0.9% 1,000 ML IV SCH (09:15)
[2022-04-09 09:27] LABS: ANION GAP 15.2 mmol/L (5-15)
[2022-04-09] MEDS ORDERED: Magnesium Sulfate/Water 2 GM in Premix Bag 1 BAG IV ONE (10:57)
[2022-04-09] MEDS ORDERED: Diltiazem 125 MG in Sodium Chloride 0.9% 100 ML IV SCH ×2 (11:00→11:45)
[2022-04-09] MEDS ORDERED: NS with KCl 40mEq 1,000 ML IV SCH (11:00)
[2022-04-09] MEDS ORDERED: Sodium Chloride 0.9% 100 ML ONE (11:53)
== END 2022-04-09 12:00 | disposition short-term general hospital (02) ==
LOC: VM.ED 08:30
DX: I48.91 Unspecified atrial fibrillation (principal); E83.42 Hypomagnesemia; E87.6 Hypokalemia; D72.829 Elevated white blood cell count, unspecified; J45.909 Unspecified asthma, uncomplicated; I10 Essential (primary) hypertension; E66.9 Obesity, unspecified; Z68.26 Body mass index [BMI] 26.0-26.9, adult; Z88.1 Allergy status to other antibiotic agents; Z88.0 Allergy status to penicillin; Z88.8 Allergy status to other drugs, medicaments and biological substances; Z79.899 Other long term (current) drug therapy; Z79.82 Long term (current) use of aspirin; Z86.16 Personal history of COVID-19; Z87.891 Personal history of nicotine dependence; Z20.822 Contact with and (suspected) exposure to COVID-19
CPT/HCPCS: 36415; 71046; 80053; 81001; 83605; 83690; 83735; 84484; 85025; 85610; 86140; 87040; 93005; 93010; 96361; 96374; 96375; 96376; 99284; 99285-25; J3475; J3490; J7030; U0002

== ENCOUNTER 2022-04-24 20:34 | Emergency (ER) | payer MEDICARE, OTHER ==
[2022-04-24] MEDS ORDERED: Sodium Chloride 0.9% 10 ML Syringe FLUSH PRN (20:38)
[2022-04-24 21:23] VITALS: BP 109/58; PULSE 82
[2022-04-24 21:34] LABS: PTT,PARTIAL THROMBOPLSTIN TIME 26.1 SEC (20.5-30.9)
[2022-04-24 21:45] LABS: CHLORIDE,CL 102 mmol/L (98-107); SODIUM,NA 140 mmol/L (136-145)
[2022-04-24 21:57] LABS: ANION GAP 11.9 mmol/L (5-15); ESTIMATED GFR 57 mL/min (>=60)
[2022-04-24 21:58] LABS: CORONAVIRUS COVID-19 NAA NEGATIVE (NEGATIVE); RESPIRATORY SYNCYTIAL VIR NAA NEGATIVE (NEGATIVE)
[2022-04-24] MEDS ORDERED: Sodium Chloride 0.9% 1,000 ML IV SCH (22:00)
== END 2022-04-24 22:56 | disposition home or self-care (01) ==
LOC: VM.ED 20:34
DX: E86.0 Dehydration (principal); E78.00 Pure hypercholesterolemia, unspecified; I10 Essential (primary) hypertension; J44.9 Chronic obstructive pulmonary disease, unspecified; E66.9 Obesity, unspecified; Z68.30 Body mass index [BMI] 30.0-30.9, adult; Z86.16 Personal history of COVID-19; Z87.891 Personal history of nicotine dependence; Z88.1 Allergy status to other antibiotic agents; Z88.0 Allergy status to penicillin; Z88.8 Allergy status to other drugs, medicaments and biological substances; Z79.899 Other long term (current) drug therapy; Z20.822 Contact with and (suspected) exposure to COVID-19
CPT/HCPCS: 0241U; 36415; 71045; 80053; 81003; 83605; 83735; 84100; 84443; 84484; 85025; 85610; 85730; 86140; 87040; 93005; 93010; 99284

== ENCOUNTER 2022-12-05 04:35 | Emergency (ER) | payer MEDICARE, OTHER ==
[2022-12-05] MEDS ORDERED: Sodium Chloride 0.9% 10 ML Syringe FLUSH PRN (04:48)
[2022-12-05] MEDS ORDERED: Lactated Ringers 1,000 ML IV ONE (04:52)
[2022-12-05 05:33] LABS: CHLORIDE,CL 106 mmol/L (98-107); SODIUM,NA 141 mmol/L (136-145)
[2022-12-05 05:35] LABS: ANION GAP 8.7 mmol/L (5-15); ESTIMATED GFR 57 mL/min (>=60)
[2022-12-05 07:41] VITALS: BP 170/78; PULSE 88
== END 2022-12-05 06:44 | disposition home or self-care (01) ==
LOC: VM.ED 04:41
DX: E86.0 Dehydration (principal); I48.91 Unspecified atrial fibrillation; I10 Essential (primary) hypertension; J44.9 Chronic obstructive pulmonary disease, unspecified; E66.9 Obesity, unspecified; Z87.891 Personal history of nicotine dependence; Z86.16 Personal history of COVID-19; Z88.1 Allergy status to other antibiotic agents; Z88.0 Allergy status to penicillin; Z88.8 Allergy status to other drugs, medicaments and biological substances; Z79.82 Long term (current) use of aspirin; Z79.01 Long term (current) use of anticoagulants; Z79.899 Other long term (current) drug therapy
CPT/HCPCS: 80053; 81003; 83735; 84100; 84484; 85025; 93005; 93010; 96360; 99284; 99284-25; J7120

== ENCOUNTER 2023-03-15 11:16 | Emergency (ER) | payer MEDICARE, OTHER ==
[2023-03-15 11:23] VITALS: BP 131/80; PULSE 70
[2023-03-15 11:45] LABS: BASOPHILS PERCENT AUTO 0.4 % (0.2-1.2); EOSINOPHILS ABSOLUTE AUTO 0.1 x10^3/uL (0.0-0.5); EOSINOPHILS PERCENT AUTO 2.5 % (0.0-4.0); HEMATOCRIT 36.5 % (33.0-47.0); HEMOGLOBIN 12.8 g/dL (12.0-16.0); IMMATURE GRAN ABSOLUTE AUTO 0.01 x10^3/uL (0.00-0.07); LYMPHOCYTES ABSOLUTE AUTO 1.2 x10^3/uL (1.0-4.8); LYMPHOCYTES PERCENT AUTO 22.9 % (25.0-50.0); MEAN CORPUSCULAR HEMOGLOBIN 30.6 pg (26.0-32.0); MEAN CORPUSCULAR HGB CONC 35.1 g/dL (32.0-36.0); MEAN CORPUSCULAR VOLUME 87.3 fL (78.0-93.0); MONOCYTES ABSOLUTE AUTO 0.5 x10^3/uL (0.0-0.8); MONOCYTES PERCENT AUTO 9.6 % (2.0-11.0); NEUTROPHILS ABSOLUTE AUTO 3.3 x10^3/uL (1.8-7.7); NEUTROPHILS PERCENT AUTO 64.4 % (50.0-80.0); PLATELET COUNT,PLT 237 x10^3/uL (130-400); RED BLOOD CELL COUNT 4.18 x10^6/uL (4.00-5.50); WHITE BLOOD CELL COUNT,WBC 5.1 x10^3/uL (4.0-10.0)
[2023-03-15 12:08] LABS: A/G RATIO 0.97; ALANINE AMINOTRANSFERASE,ALT 12 U/L (14-59); ALBUMIN 3.2 g/dL (3.4-5.0); ALKALINE PHOSPHATASE 94 U/L (46-116); ASPARTATE AMNIOTRANSFERASE,AST 12 U/L (15-37); BILIRUBIN TOTAL 1.1 mg/dL (0.2-1.0); BLOOD UREA NITROGEN,BUN 19 mg/dL (7-18); C-REACTIVE PROTEIN 0.09 mg/dL (<=0.30); CALCIUM 8.7 mg/dL (8.5-10.1); CARBON DIOXIDE,CO2 30 mmol/L (21-32); CHLORIDE,CL 107 mmol/L (98-107); ESTIMATED GFR 57 mL/min (>=60); GLUCOSE RANDOM 91 mg/dL (70-99); MAGNESIUM 2.1 mg/dL (1.8-2.4); PHOSPHORUS 3.7 mg/dL (2.6-4.7); PROTEIN TOTAL,TP 6.5 g/dL (6.4-8.2); SODIUM,NA 144 mmol/L (136-145)
== END 2023-03-15 12:46 | disposition home or self-care (01) ==
LOC: VM.ED 11:16
DX: R42 Dizziness and giddiness (principal); I48.91 Unspecified atrial fibrillation; I10 Essential (primary) hypertension; E78.00 Pure hypercholesterolemia, unspecified; J44.9 Chronic obstructive pulmonary disease, unspecified; E66.9 Obesity, unspecified; Z86.16 Personal history of COVID-19; Z79.82 Long term (current) use of aspirin; Z79.899 Other long term (current) drug therapy; Z88.0 Allergy status to penicillin; Z88.1 Allergy status to other antibiotic agents; Z88.8 Allergy status to other drugs, medicaments and biological substances
CPT/HCPCS: 36415; 70450; 80053; 83735; 84100; 84484; 85025; 86140; 93005; 93010; 99284

== ENCOUNTER 2023-07-23 12:34 | Emergency (ER) | payer MEDICARE, OTHER ==
[2023-07-23 13:06] LABS: HEMATOCRIT 32.8 % (33.0-47.0); MEAN CORPUSCULAR HEMOGLOBIN 29.8 pg (26.0-32.0); MEAN CORPUSCULAR HGB CONC 33.5 g/dL (32.0-36.0); MEAN CORPUSCULAR VOLUME 88.9 fL (78.0-93.0); PLATELET COUNT,PLT 89 x10^3/uL (130-400); RED BLOOD CELL COUNT 3.69 x10^6/uL (4.00-5.50)
[2023-07-23 13:10] LABS: WHITE BLOOD CELL COUNT,WBC 0.8 x10^3/uL (4.0-10.0)
[2023-07-23 13:16] LABS: BAND PERCENT MAN 1 % (0-6); BASOPHILS PERCENT MAN 1 % (0-1); BLASTS PERCENT MAN 2 % (0); LYMPHOCYTES % ATYPICAL MANUAL 11 % (0); LYMPHOCYTES ABSOLUTE MAN 0.5 x10^3/uL (1.0-4.8); LYMPHOCYTES PERCENT MAN 47 % (25-50); MONOCYTES ABSOLUTE MAN 0.2 x10^3/uL (0.0-0.8); MONOCYTES PERCENT MAN 31 % (2-11); NEUTROPHILS ABSOLUTE MAN 0.1 x10^3/uL (1.8-7.7); SEG NEUTROPHILS PERCENT MAN 7 % (50-80)
[2023-07-23 13:17] LABS: ACANTHOCYTES 1+ SLIGHT; HYPOCHROMASIA 1+ SLIGHT; PLATELET COUNT ESTIMATE DECREASED
[2023-07-23 13:28] LABS: A/G RATIO 0.82; ALANINE AMINOTRANSFERASE,ALT 16 U/L (14-59); ALBUMIN 2.8 g/dL (3.4-5.0); ALKALINE PHOSPHATASE 93 U/L (46-116); ASPARTATE AMNIOTRANSFERASE,AST 13 U/L (15-37); BILIRUBIN TOTAL 0.9 mg/dL (0.2-1.0); BLOOD UREA NITROGEN,BUN 20 mg/dL (7-18); CALCIUM 8.2 mg/dL (8.5-10.1); CARBON DIOXIDE,CO2 25 mmol/L (21-32); CHLORIDE,CL 102 mmol/L (98-107); CREATININE 1.2 mg/dL (0.55-1.02); GLUCOSE RANDOM 113 mg/dL (70-99); POTASSIUM,K 4.1 mmol/L (3.5-5.1); PRO B-TYPE NATRIUR PEPT,BNPPRO 1375 pg/mL (<=450); PROTEIN TOTAL,TP 6.2 g/dL (6.4-8.2); SODIUM,NA 137 mmol/L (136-145)
[2023-07-23 13:31] LABS: ANION GAP 14.1 mmol/L (5-15); ESTIMATED GFR 46 mL/min (>=60)
[2023-07-23 13:40] LABS: CORONAVIRUS COVID-19 NAA NEGATIVE (NEGATIVE); INFLUENZA A NAA NEGATIVE (NEGATIVE); INFLUENZA B NAA NEGATIVE (NEGATIVE); RESPIRATORY SYNCYTIAL VIR NAA NEGATIVE (NEGATIVE)
[2023-07-23 14:49] LABS: APPEARANCE,URINE CLEAR (CLEAR); BILIRUBIN,URINE NEGATIVE (NEGATIVE); COLOR,URINE YELLOW (YELLOW); GLUCOSE,URINE NEGATIVE (NEGATIVE); KETONES,URINE NEGATIVE (NEGATIVE); LEUKOCYTE ESTERASE,URINE NEGATIVE (NEGATIVE); NITRITE,URINE NEGATIVE (NEGATIVE); OCCULT BLOOD,URINE NEGATIVE (NEGATIVE); PH,URINE 6.5 (5.0-8.0); PROTEIN,URINE 30 mg/dL (NEGATIVE); UROBILINOGEN,URINE 0.2 EU/dL (0.2)
[2023-07-23] MEDS: Piperacillin/Tazobactam 3.375 GM in Sodium Chloride 0.9% 100 ML IV ONE (14:53)
[2023-07-23 14:56] LABS: BACTERIA,URINE NOT SEEN /HPF (NOT SEEN); MUCUS,URINE NOT SEEN /LPF (NOT SEEN); RBC,URINE 0-5 /HPF (NOT SEEN); SQUAMOUS EPITHELIAL CELLS,UR RARE /HPF (NOT SEEN); WBC,URINE 0-5 /HPF (NOT SEEN)
[2023-07-23 15:20] VITALS: BP 118/49; PULSE 77
== END 2023-07-23 15:37 | disposition short-term general hospital (02) ==
LOC: VM.ED 12:34
DX: R53.1 Weakness (principal); D70.1 Agranulocytosis secondary to cancer chemotherapy; T45.1X5A Adverse effect of antineoplastic and immunosuppressive drugs, initial encounter; Z20.822 Contact with and (suspected) exposure to COVID-19; I10 Essential (primary) hypertension; E78.00 Pure hypercholesterolemia, unspecified; I48.91 Unspecified atrial fibrillation; J44.9 Chronic obstructive pulmonary disease, unspecified; E66.9 Obesity, unspecified; Z86.16 Personal history of COVID-19; Z90.710 Acquired absence of both cervix and uterus; Z79.82 Long term (current) use of aspirin; Z79.899 Other long term (current) drug therapy; Z88.1 Allergy status to other antibiotic agents; Z88.0 Allergy status to penicillin; Z88.8 Allergy status to other drugs, medicaments and biological substances
CPT/HCPCS: 0241U; 36415; 70450; 71045; 80053; 81001; 83605; 83880; 84484; 85025; 87040; 93005; 96365; 99285-25; J2543; J3490

== ENCOUNTER 2024-07-26 13:05 | Emergency (ER) | payer MEDICARE, OTHER ==
[2024-07-26] MEDS ORDERED: Sodium Chloride 0.9% 10 ML Syringe FLUSH PRN (13:29)
[2024-07-26 13:39] LABS: BASOPHILS PERCENT AUTO 0.3 % (0.2-1.2); EOSINOPHILS ABSOLUTE AUTO 0.1 x10^3/uL (0.0-0.5); EOSINOPHILS PERCENT AUTO 1.6 % (0.0-4.0); HEMATOCRIT 30.6 % (33.0-47.0); HEMOGLOBIN 10.4 g/dL (12.0-16.0); IMMATURE GRAN ABSOLUTE AUTO 0.01 x10^3/uL (0.00-0.07); LYMPHOCYTES PERCENT AUTO 17.6 % (25.0-50.0); MEAN CORPUSCULAR HEMOGLOBIN 28.9 pg (26.0-32.0); MONOCYTES ABSOLUTE AUTO 0.6 x10^3/uL (0.0-0.8); MONOCYTES PERCENT AUTO 9.8 % (2.0-11.0); NEUTROPHILS PERCENT AUTO 70.5 % (50.0-80.0); PLATELET COUNT,PLT 268 x10^3/uL (130-400); WHITE BLOOD CELL COUNT,WBC 5.7 x10^3/uL (4.0-10.0)
[2024-07-26 14:06] VITALS: BP 107/47; PULSE 64
[2024-07-26 14:06] LABS: ALANINE AMINOTRANSFERASE,ALT 12 U/L (14-59); ALBUMIN 2.6 g/dL (3.4-5.0); ALKALINE PHOSPHATASE 97 U/L (46-116); ASPARTATE AMNIOTRANSFERASE,AST 19 U/L (15-37); BILIRUBIN TOTAL 1.2 mg/dL (0.2-1.0); BLOOD UREA NITROGEN,BUN 15 mg/dL (7-18); C-REACTIVE PROTEIN 0.93 mg/dL (<=0.50); CALCIUM 8.7 mg/dL (8.5-10.1); CARBON DIOXIDE,CO2 28 mmol/L (21-32); CHLORIDE,CL 102 mmol/L (98-107); CREATININE 1.7 mg/dL (0.55-1.02); GLUCOSE RANDOM 103 mg/dL (70-99); MAGNESIUM 1.6 mg/dL (1.8-2.4); POTASSIUM,K 3.4 mmol/L (3.5-5.1); PRO B-TYPE NATRIUR PEPT,BNPPRO 522 pg/mL (<=450); PROTEIN TOTAL,TP 6.3 g/dL (6.4-8.2); SODIUM,NA 141 mmol/L (136-145)
[2024-07-26 14:08] LABS: ANION GAP 14.4 mmol/L (5-15); EST CRCL DRUG DOSING (CG) 23.35 mL/min; ESTIMATED GFR 30 mL/min (>=60); ETHANOL BLOOD MEDICAL < 3 mg/dL (0-3)
[2024-07-26 14:44] LABS: APPEARANCE,URINE CLEAR (CLEAR); BILIRUBIN,URINE NEGATIVE (NEGATIVE); COLOR,URINE YELLOW (YELLOW); GLUCOSE,URINE NEGATIVE (NEGATIVE); KETONES,URINE NEGATIVE (NEGATIVE); LEUKOCYTE ESTERASE,URINE NEGATIVE (NEGATIVE); NITRITE,URINE NEGATIVE (NEGATIVE); OCCULT BLOOD,URINE NEGATIVE (NEGATIVE); PH,URINE 5.5 (5.0-8.0); PROTEIN,URINE NEGATIVE (NEGATIVE); UROBILINOGEN,URINE 0.2 EU/dL (0.2)
[2024-07-26] MEDS: Potassium Chloride 20 MEQ Tab.ER PO ONE (15:08)
[2024-07-26] MEDS: Magnesium Oxide 400 MG Tab PO ONE (15:09)
== END 2024-07-26 15:16 | disposition home or self-care (01) ==
LOC: VM.ED 13:05 → SUPCPDRO 13:05 → VM.ED 15:16
DX: R53.1 Weakness (principal); I10 Essential (primary) hypertension; J44.89 Other specified chronic obstructive pulmonary disease; E78.00 Pure hypercholesterolemia, unspecified; E66.9 Obesity, unspecified; Z88.0 Allergy status to penicillin; Z88.1 Allergy status to other antibiotic agents; Z88.8 Allergy status to other drugs, medicaments and biological substances; Z79.82 Long term (current) use of aspirin; Z86.16 Personal history of COVID-19; Z90.710 Acquired absence of both cervix and uterus; Z68.27 Body mass index [BMI] 27.0-27.9, adult
CPT/HCPCS: 36415; 71045; 80053; 80307; 81003; 82947; 83605; 83735; 83880; 84484; 85025; 86140; 87040; 93005; 99285; A9270; 87077; 93010; 99284

== ENCOUNTER 2024-10-02 13:14 | Inpatient (IN) | payer MEDICARE, OTHER ==
[2024-10-02] MEDS ORDERED: Sodium Chloride 0.9% 10 ML Syringe FLUSH PRN (13:46)
[2024-10-02 14:22] LABS: BASOPHILS PERCENT AUTO 0.1 % (0.2-1.2); EOSINOPHILS ABSOLUTE AUTO 0.1 x10^3/uL (0.0-0.5); EOSINOPHILS PERCENT AUTO 1.2 % (0.0-4.0); HEMOGLOBIN 13.2 g/dL (12.0-16.0); IMMATURE GRAN ABSOLUTE AUTO 0.02 x10^3/uL (0.00-0.07); LYMPHOCYTES ABSOLUTE AUTO 0.8 x10^3/uL (1.0-4.8); LYMPHOCYTES PERCENT AUTO 9.4 % (25.0-50.0); MEAN CORPUSCULAR HEMOGLOBIN 28.4 pg (26.0-32.0); MEAN CORPUSCULAR HGB CONC 34.7 g/dL (32.0-36.0); MEAN CORPUSCULAR VOLUME 81.9 fL (78.0-93.0); MONOCYTES ABSOLUTE AUTO 0.5 x10^3/uL (0.0-0.8); MONOCYTES PERCENT AUTO 6.1 % (2.0-11.0); NEUTROPHILS ABSOLUTE AUTO 7.3 x10^3/uL (1.8-7.7); PLATELET COUNT,PLT 311 x10^3/uL (130-400); RED BLOOD CELL COUNT 4.64 x10^6/uL (4.00-5.50); WHITE BLOOD CELL COUNT,WBC 8.8 x10^3/uL (4.0-10.0)
[2024-10-02] MEDS: Lactated Ringers 1,000 ML IV ONE (14:22)
[2024-10-02 14:43] LABS: LACTIC ACID 1.2 mmol/L (0.4-2.0)
[2024-10-02 14:52] LABS: A/G RATIO 0.65; ALANINE AMINOTRANSFERASE,ALT 9 U/L (14-59); ALKALINE PHOSPHATASE 114 U/L (46-116); ASPARTATE AMNIOTRANSFERASE,AST 41 U/L (15-37); BLOOD UREA NITROGEN,BUN 22 mg/dL (7-18); C-REACTIVE PROTEIN 3.22 mg/dL (<=0.50); CALCIUM 9.4 mg/dL (8.5-10.1); CARBON DIOXIDE,CO2 27 mmol/L (21-32); CHLORIDE,CL 96 mmol/L (98-107); CREATININE 1.1 mg/dL (0.55-1.02); GLUCOSE RANDOM 89 mg/dL (70-99); MAGNESIUM 1.7 mg/dL (1.8-2.4); PHOSPHORUS 3.1 mg/dL (2.6-4.7); POTASSIUM,K 3.1 mmol/L (3.5-5.1); PRO B-TYPE NATRIUR PEPT,BNPPRO 256 pg/mL (<=450); PROTEIN TOTAL,TP 7.6 g/dL (6.4-8.2); SODIUM,NA 136 mmol/L (136-145); TSH ULTRASENSITIVE 2.389 uIU/mL (0.358-3.74)
[2024-10-02 14:55] LABS: ANION GAP 16.1 mmol/L (5-15); ESTIMATED GFR 50 mL/min (>=60)
[2024-10-02 14:56] LABS: ETHANOL BLOOD MEDICAL < 3 mg/dL (0-3)
[2024-10-02] MEDS: Factor IX Complex Human 1,000 UNIT VIAL IVPUSH ONE (16:30)
[2024-10-02] MEDS: Tranexamic Acid 1,000 MG/10 ML Vial IVPUSH ONE (16:30)
[2024-10-02] MEDS: Ondansetron 4 MG/2 ML SDV IVPUSH ONE (16:48)
[2024-10-02 18:32] VITALS: BP 131/57; PULSE 79
[2024-10-02] MEDS: Prochlorperazine 10 MG/2 ML SDV IV ONE (19:10)
[2024-10-02] MEDS: diphenhydrAMINE 50 MG/ML SDV IVPUSH ONE (19:10)
== END 2024-10-02 20:50 | disposition short-term general hospital (02) | DRG 55 ==
LOC: VM.ED 13:14 → VM.MS 16:54
PROVIDERS: ADMIT Physician Assistant; ATTEND Physician Assistant
DX: C79.31 Secondary malignant neoplasm of brain (principal); R53.1 Weakness; I48.91 Unspecified atrial fibrillation; E78.00 Pure hypercholesterolemia, unspecified; J44.89 Other specified chronic obstructive pulmonary disease; I10 Essential (primary) hypertension; J44.9 Chronic obstructive pulmonary disease, unspecified; F32.A Depression, unspecified; E66.9 Obesity, unspecified; Z88.1 Allergy status to other antibiotic agents; M81.0 Age-related osteoporosis without current pathological fracture; Z88.2 Allergy status to sulfonamides; Z88.8 Allergy status to other drugs, medicaments and biological substances; Z88.0 Allergy status to penicillin; Z79.01 Long term (current) use of anticoagulants; Z79.51 Long term (current) use of inhaled steroids; Z79.899 Other long term (current) drug therapy; Z86.0100 Personal history of colon polyps, unspecified; Z87.19 Personal history of other diseases of the digestive system; Z68.23 Body mass index [BMI] 23.0-23.9, adult; Z86.16 Personal history of COVID-19; Z90.710 Acquired absence of both cervix and uterus
CPT/HCPCS: 36415; 70450; 71045; 80053; 80307; 83605; 83735; 83880; 84100; 84443; 84484; 85025; 85730; 86140; 87040; 87428-QW; 93005; 93010; 96361; 96374; 96375; 99284; 99285-25; J0780; J1200; J2405; J7120; J7168